=== PATIENT | male | born 1995 | race Caucasian/White ===

== ENCOUNTER 2020-04-18 05:53 | Inpatient (IN) | payer BC ==
[~2020-04-18] VITALS: Ht 185.4 cm; Wt 146.1 kg
[2020-04-18 06:59] LABS: BASOPHILS % 0.8 % (0.0-2.0); EOSINOPHILS % 0.9 % (0.0-5.0); HEMATOCRIT. 43.9 % (42.0-52.0); HEMOGLOBIN. 15.1 g/dL (14.0-18.0); LYMPHOCYTES % 27.1 % (20.0-50.0); MEAN CORPUSCULAR HEMOGLOBIN 28.6 pg (28.0-32.0); MEAN CORPUSCULAR VOLUME 83.3 fL (80.0-94.0); MEAN PLATELET VOLUME 9.3 fl (7.4-10.4); MONOCYTES % 7.1 % (2.0-8.0); NEUTROPHILS % 64.1 % (40.0-76.0); PLATELET 321 x1000/uL (130-400); RED BLOOD CELL COUNT 5.27 mill/uL (4.7-6.1); RED CELL DISTRIBUTION WIDTH 13.4 % (11.6-14.6)
[2020-04-18 07:02] LABS: CHLORIDE 108 mEq/L (98-107)
[2020-04-18 07:06] LABS: ETHANOL BLOOD < 10 mg/dL
[2020-04-18] MEDS ORDERED: SODIUM CHLORIDE 0.9% 1,000 ML IV ONE (07:43)
[2020-04-18 10:02] LABS: CLARITY URINE CLEAR (CLEAR); COLOR URINE YELLOW (YELLOW); KETONES URINE NEGATIVE (NEGATIVE); LEUKOCYTE ESTERASE URINE NEGATIVE (NEGATIVE); NITRITE URINE NEGATIVE (NEGATIVE); OCCULT BLOOD URINE NEGATIVE (NEGATIVE); PH URINE 7.5 (4.5-8.0); PROTEIN URINE NEGATIVE (NEGATIVE); SPECIFIC GRAVITY URINE 1.019 (1.005-1.030)
[2020-04-18 10:20] LABS: *AMPHETAMINES SCREEN URINE NEGATIVE (NEGATIVE)
[2020-04-18 10:21] LABS: *BARBITURATES SCREEN URINE NEGATIVE (NEGATIVE); *BENZODIAZEPINES SCREEN URINE NEGATIVE (NEGATIVE); *COCAINE SCREEN URINE NEGATIVE (NEGATIVE); METHADONE URINE SCREEN NEGATIVE (NEGATIVE); OPIATES URINE SCREEN NEGATIVE (NEGATIVE); PHENCYCLIDINE URINE SCREEN NEGATIVE (NEGATIVE)
[2020-04-18 10:22] LABS: CANNABINOID URINE SCREEN NEGATIVE (NEGATIVE)
[2020-04-18 14:00] VITALS: BP 149/76
[2020-04-18] MEDS ORDERED: HYDRALAZINE 20MG/ML VIAL IV PRN (14:15)
[2020-04-18] MEDS ORDERED: ACETAMINOPHEN 325MG TABLET PO PRN (14:15)
[2020-04-18] MEDS ORDERED: ONDANSETRON HCL 4MG/2ML INJ IV PRN (14:15)
[2020-04-18 16:00] VITALS: BP 130/71
[2020-04-18] MEDS: VENLAFAXINE HCL 37.5MG TABLET PO SCH (17:27)
[2020-04-18 20:00] VITALS: BP 118/46
[2020-04-18] MEDS: HEPARIN 5000 UNITS/ML VIAL SUBCUT SCH ×2 (20:13→20:40)
[2020-04-19] VITALS: BP 126/72
[2020-04-19 04:00] VITALS: BP 125/88
[2020-04-19 07:19] LABS: EOSINOPHILS % 1.1 % (0.0-5.0); HEMATOCRIT. 39.3 % (42.0-52.0); HEMOGLOBIN. 13.8 g/dL (14.0-18.0); LYMPHOCYTES % 32.1 % (20.0-50.0); MEAN CORPUSCULAR HEMOGLOBIN 29.3 pg (28.0-32.0); MEAN CORPUSCULAR VOLUME 83.3 fL (80.0-94.0); MEAN PLATELET VOLUME 9.3 fl (7.4-10.4); MONOCYTES % 9.1 % (2.0-8.0); NEUTROPHILS % 56.7 % (40.0-76.0); PLATELET 276 x1000/uL (130-400); RED BLOOD CELL COUNT 4.72 mill/uL (4.7-6.1); RED CELL DISTRIBUTION WIDTH 13.1 % (11.6-14.6)
[2020-04-19 07:31] LABS: CHLORIDE 109 mEq/L (98-107)
[2020-04-19 07:52] LABS: LDL CHOLESTEROL 73 mg/dL (5-100)
[2020-04-19 07:54] LABS: HDL CHOLESTEROL 27 mg/dL (40-59)
[2020-04-19 08:00] VITALS: BP 113/58
[2020-04-19] MEDS: HEPARIN 5000 UNITS/ML VIAL SUBCUT SCH (08:58)
[2020-04-19] MEDS: VENLAFAXINE HCL 37.5MG TABLET PO SCH (08:58)
[2020-04-19 12:00] VITALS: BP 119/68
[2020-04-19] MEDS ORDERED: VENL-179 PO (13:51)
[2020-04-19 15:24] VITALS: BP 119/68
== END 2020-04-19 16:42 | disposition home or self-care (01) | DRG 54 ==
LOC: ER 05:53 → 8WST 11:59 → EDBEDREQ 12:02 → EDBEDREQTM 12:02 → ENRESERV 12:20 → 8WST 04-19 09:45
PROVIDERS: ADMIT Family Medicine Adult Medicine; ATTEND Family Medicine Adult Medicine
DX: G43.809 Other migraine, not intractable, without status migrainosus (principal); E66.01 Morbid (severe) obesity due to excess calories; E78.1 Pure hyperglyceridemia; F41.9 Anxiety disorder, unspecified; G44.89 Other headache syndrome; F32.9 Major depressive disorder, single episode, unspecified; R73.9 Hyperglycemia, unspecified; I10 Essential (primary) hypertension; R47.81 Slurred speech; I69.351 Hemiplegia and hemiparesis following cerebral infarction affecting right dominant side; Z68.41 Body mass index [BMI] 40.0-44.9, adult; Z79.899 Other long term (current) drug therapy
CPT/HCPCS: 36415; 71045; 80053; 80061; 80305; 80320; 81003; 82140; 83036; 83735; 84484; 85025; 93005; 93306; 97162; 99285; J1644; J7030; G0480